=== PATIENT | female | born 1930 | race Caucasian/White ===

== ENCOUNTER 2016-07-02 04:58 | Emergency (ER) | payer MEDICARE, OTHER ==
[~2016-07-02 04:58] MED LIST: BUSPAR5 MG PO; CLARITIN DPS10 MG PO; FOSAMAX70 MG PO; MACROBID100 MG PO; NORVASC DPS10 MG PO; PAMELOR DPS10 MG PO; PRESERVISION A1 EAC1 PO; VITAMIN B-121000 MC1 PO; XALATAN2.5 ML OU; XANAX DPS0.25 MG PO; ZOCOR DPS10 MG PO
--- NOTE | 2016-07-02 19:24 | ER ---
ADMIT: 07/02/2016 RM/LOC: ER [facility] MR#: [id number] [address] [address] [place] [address] [address] Emergency Room Report SEX: F AGE: 85 : 1930 DATE: 07/02/2016 The patient is an 85-year-old female with past medical history of high blood pressure, came to the ER with chief complaint of fall. The patient states she was going to shower when she lost balance and fell on the back and hit the back to the shower and after that, the patient was able to walk. The patient denies any head trauma or loss of consciousness. The patient complains of bilateral paraspinal lumbar pain. PHYSICAL EXAMINATION: GENERAL: In the ER, the patient was in no obvious distress. VITAL SIGNS: Stable. HEENT: There are no obvious signs of trauma in the head. No rice sign. No hemotympanum. No raccoon eyes. Pupils are 3 mm, reactive to light bilaterally. Trachea is midline. There is no cervical spine midline tenderness or step-offs. There is no midline tenderness or step-offs also in the rest of the spine. The patient has mild tenderness in bilateral paraspinal, lower thoracic, and higher lumbar area. LUNGS: Bilateral equal breath sounds. HEART: Normal S1, S2 without any murmurs. ABDOMEN: Soft. EXTREMITIES: Except for some ecchymosis on the right elbow, the range of the motion of all extremities are good and I did not see any obvious swelling or signs of injury. LABORATORY DATA: The EKG was positive for left bundle branch block and was normal sinus rhythm and also negative for Sgarbossa criteria. Cardiac enzymes troponin I is negative. WBC is 11.5 with hemoglobin of 12.4, and platelets of 145,000. Sodium is 137, potassium was 4. CT of the chest and abdomen was questionable for T10-T11 nondisplaced compression fracture. Dr. Delarosa, the neurosurgeon was contacted and advised the patient can be discharged to home, as this is a stable fracture, and follow up as an outpatient for possible MRI and further interventions. Plan was discussed with the patient. Physical therapist evaluation was ordered for assessment of mobility and home safety per the patient. The patient was signed out to the next shift to follow up on physical therapist assessment and disposition accordingly. Charbel Perez MD/ diandra JOB #: [id number] CC: Charbel Perez MD, Attending Physician Jonathan Johnson MD, Family Physician
--- NOTE | 2016-07-08 15:34 | ER ---
ADMIT: 07/02/2016 RM/LOC: ER [facility] MR#: [id number] [address] [address] [place] [address] Emergency Room Report SEX: F AGE: 85 : 1930 DATE: 07/02/2016 ADDENDUM: An 85-year-old white female coming in with a little bit of back pain. I refer you to Dr. Perez's T-sheet and dictation. At this time, she essentially has maybe a mild T11 compression fracture. I spoke with Dr. Johnson. She is able to get up and around. We will discharge her home, Tylenol for pain. Heat or ice and then she is to see Dr. Johnson this week. CONDITION ON DISCHARGE: Good. Jonathan Villanueva MD/ diandra JOB #: [id number] CC: Charbel Perez MD, Attending Physician Jonathan Johnson MD, Family Physician
[2016-07-11] MEDS ORDERED: MIRALAX PACKET17 GM PO (19:45)
[2016-07-11] MEDS ORDERED: FLEET ENEMA133 ML PR (19:46)
[2016-07-11] MEDS ORDERED: DULCOLAX-DPS10 MG PR (19:46)
[2016-07-11] MEDS ORDERED: ZOFRAN4 MG PO (19:46)
[2016-07-11] MEDS ORDERED: TYLENOL DPS325 MG PO (19:46)
[2016-07-11] MEDS ORDERED: MYLICON DPS80 MG PO (19:46)
== END 2016-07-02 11:07 | disposition home or self-care (01) ==
LOC: ER 04:58
DX: S50.01XA Contusion of right elbow, initial encounter (principal); M54.5 Low back pain; I10 Essential (primary) hypertension; E78.00 Pure hypercholesterolemia, unspecified; W22.8XXA Striking against or struck by other objects, initial encounter

== ENCOUNTER 2016-07-05 11:08 | Inpatient (IN) | payer MEDICARE, OTHER ==
[~2016-07-05] VITALS: Ht 160 cm; Wt 52.6 kg
--- NOTE | 2016-07-07 08:28 | HP ---
ADMIT: 07/05/2016 RM/LOC: 618 [facility] MR#: [id number] 2620 [facility] [address] [place] [address] [place] [facility] [place] [address] History and Physical SEX: F AGE: 85 : 1930 DATE OF SERVICE: CHIEF COMPLAINT: Nausea and vomiting. HISTORY OF PRESENT ILLNESS: Ms. Cole is a very pleasant, 85-year-old female. She has a past medical history significant for anxiety, hypertension, hyperlipidemia, and osteoporosis. She apparently fell late Wednesday night early morning, was actually seen in the ER and at that time, was found to have a T11 compression fracture, thought to be acute. She reports since then she has been taking arthritis strength Tylenol pretty frequently every 6 hours and it has been working for her back pain notes that. She then yesterday started developing nausea, reports that every time she would eat, food come back up. Reports she has not had a bowel movement since Wednesday. Notes that otherwise she feels hungry at times, but then she will try to eat and she will just throw food up, so she came to the ER. They did a CT scan that did show an ileus, otherwise she was noted to be mildly hyponatremic. PAST MEDICAL HISTORY: Significant for: 1. Anxiety. 2. Hypertension. 3. Hyperlipidemia. 4. Osteoporosis. 5. Chronic kidney disease. 6. New T11 fracture from 3 days ago. ALLERGIES: NO KNOWN MEDICAL ALLERGIES. MEDICATIONS: List currently I believe is: 1. Xanax 0.25 p.o. t.i.d. p.r.n. 2. Amlodipine 5 mg p.o. daily. 3. Vitamin B12 of 1000 mcg p.o. daily. 4. Xalatan eye drops 1 drop each eye at bedtime. 5. Pamelor 20 mg p.o. at bedtime. 6. Zocor 10 mg p.o. daily. 7. PreserVision eye drops. SOCIAL HISTORY: She does not smoke or use any significant alcohol. She lives with her actually independently although there are planning moving to an assisted living in [place]. FAMILY HISTORY: Relatively noncontributory. REVIEW OF SYSTEMS: Obtained, was otherwise essentially negative. PHYSICAL EXAMINATION: GENERAL: She is alert and oriented. She is no apparent distress. SKIN: Warm and dry. NEUROLOGICAL: She moves her upper and lower extremities. Notes alert and oriented. Pupils are equal, round, reactive. Oropharynx has dry mucous ADMIT: 07/05/2016 RM/LOC: 618 [facility] MR#: [id number] [address] [address] [facility] [place] [address] History and Physical SEX: F AGE: 85 : 1930 membranes. NECK: Supple. HEART: Normal rate with a regular rhythm. LUNGS: Clear to auscultation. ABDOMEN: Normoactive bowel sounds. EXTREMITIES: Have no evidence of edema. ASSESSMENT/PLAN: 1. Severe constipation. At this time, the plan is to admit her. We will go ahead and really try more from below as opposed to orally with her mild ileus on CT scan. 2. New T11 compression fracture. We will continue p.r.n. Tylenol. 3. Hypertension. Continue amlodipine. 4. Hyperlipidemia. Continue Zocor. 5. Insomnia. Continue her Pamelor. 6. Hyponatremia. We will check a TSH and a cortisol level. We will give her some IV fluids and repeat her labs in the morning. I spent 35 minutes. Bess Mederos MD/ diandra JOB #: [id number] CC: Jonathan Johnson, Attending Physician Jonathan Johnson, Family Physician
--- NOTE | 2016-07-09 09:48 | CO ---
ADMIT: 07/06/2016 RM/LOC: 618 [facility] MR#: [id number] [address] [address] [place] [place] [address] [place] [address] Consultation SEX: F AGE: 85 : 1930 DATE OF CONSULTATION: 07/08/2016 ATTENDING PHYSICIAN: Jonathan Johnson CONSULTING PHYSICIAN: Doug Childress MD HISTORY OF PRESENT ILLNESS: This is an 85-year-old female, seen in surgical consultation for Dr. Johnson for severe constipation. Aide reports she fell just over a week ago at home and hit something in her bathroom in the middle of the night. She had sudden pain then and was evaluated in the ER, found to have a T11 compression fracture. She came to the hospital with complaints of not having bowel movements over the last several days preceding that visit on the . She was admitted for further workup. She did have nausea and vomiting at that point. CT scan was performed, which demonstrated ileus. She now reports the nausea and vomiting has resolved. She does not have any abdominal pain and has not had any throughout this process. She does complain of pain in her back. She had a Gastrografin enema yesterday which did not demonstrate volvulus or obstructive finding, but did demonstrate stool in the colon of substantial quantity. She does report today she had a large bowel movement which was liquid and also passed a lot of gas. She has used MiraLax and Metamucil at home prior even to this injury for regular bowel function and is also felt that certain foods provide relief for her. PAST MEDICAL HISTORY: 1. Anxiety. 2. Hypertension. 3. Hyperlipidemia. 4. Osteoporosis. 5. Chronic renal insufficiency. 6. T11 fracture. ALLERGIES: NO KNOWN MEDICAL ALLERGIES. MEDICATIONS: At home: 1. Xanax. 2. Amlodipine. 3. Vitamin B12. 4. Xalatan. 5. Pamelor. 6. Zocor. 7. PreserVision. SOCIAL HISTORY: She does not smoke or drink alcohol. She lives with her and they are planning a move in August to an assisted living area. FAMILY HISTORY: Noncontributory. REVIEW OF SYSTEMS: A 10-point review of systems is performed. The remainder of this is negative with the exceptions of those symptoms mentioned in the ADMIT: 07/06/2016 RM/LOC: 618 [facility] MR#: [id number] [address] [address] [place] [address] Consultation SEX: F AGE: 85 : 1930 history of present illness. PHYSICAL EXAMINATION: GENERAL: She is alert, oriented, and in no acute distress. VITAL SIGNS: She is afebrile, and her vital signs are stable. Cranial nerves are grossly intact. NECK: Supple, without lymphadenopathy. Trachea is midline. LUNGS: Clear to auscultation bilaterally. HEART: Regular rate and rhythm. ABDOMEN: Soft. Nontender. Mild distention. Bowel sounds are present. EXTREMITIES: Calves are soft bilaterally with no clubbing, cyanosis, or edema. NEURO: No focal neurologic deficit. IMPRESSION: 1. Constipation, which seems to be somewhat improving this morning. 2. Recent T11 compression fracture. 3. Underlying comorbidities. PLAN: I have recommended continuing with attempts at oral and rectal stimulation for further bowel function monitoring. She does not have obstructive finding or worrisome finding for volvulus on the workup thus far. We will add magnesium citrate to her MiraLax regimen orally. She is scheduled to receive enemas through the day today in hopes of prompting further bowel function. We will continue to follow pending her progress. We would not perform colonoscopy tentatively, but plan for that at a later date after recovery from the fracture process. Doug Childress MD/ diandra JOB #: [id number] CC: Jonathan Johnson, Attending Physician Jonathan Johnson, Family Physician
[2016-07-11] MEDS ORDERED: MIRALAX PACKET17 GM PO (19:45)
[2016-07-11] MEDS ORDERED: TYLENOL DPS325 MG PO (19:46)
[2016-07-11] MEDS ORDERED: FLEET ENEMA133 ML PR (19:46)
[2016-07-11] MEDS ORDERED: MYLICON DPS80 MG PO (19:46)
[2016-07-11] MEDS ORDERED: ZOFRAN4 MG PO (19:46)
[2016-07-11] MEDS ORDERED: DULCOLAX-DPS10 MG PR (19:46)
--- NOTE | 2016-07-13 11:58 | CO ---
ADMIT: 07/05/2016 RM/LOC: 618 [facility] MR#: [id number] [address] [address] [place] [facility] [place] [address] Consultation SEX: F AGE: 85 : 1930 Corrected: 07/06/2016 1348 ajf DATE OF CONSULTATION: 07/06/2016 ATTENDING PHYSICIAN: Jonathan Johnson CONSULTING PHYSICIAN: Doni Delarosa MD REASON FOR CONSULT: T11 fracture. HISTORY OF PRESENT ILLNESS: This is a very pleasant woman, who presented on the with having had a fall a few days prior. She is having some trouble ambulating with severe pain in her back. She also has not had a bowel movement. CT scan was obtained, which revealed an ileus and a T11 compression fracture. She does not complain of bowel or bladder incontinence. She does have pain with walking and pain near the top of her lumbar region. PAST MEDICAL HISTORY: Anxiety, hyperlipidemia, osteoporosis, hypertension, and chronic kidney disease. ALLERGIES: NONE KNOWN. MEDICATIONS: 1. Xanax. 2. Amlodipine. 3. Vitamin B12. 4. Pamelor. 5. Zocor. 6. Xalatan. 7. PreserVision. SOCIAL HISTORY: She does not smoke or drink. She lives with her . They are working on moving to assisted living because the house is too big. FAMILY HISTORY: No history of neurosurgical disease. REVIEW OF SYSTEMS: Complete review of systems was obtained and annotated in the history of present illness with the pertinent positives. PHYSICAL EXAMINATION: VITAL SIGNS: 97.2 degrees, 87 beats, 18 respirations, 203/69 with prior readings 140 to 190, and 97% on room air. Blood pressure recheck is upcoming. GENERAL: She is otherwise healthy-appearing 85-year-old woman. HEENT: With an atraumatic head. No scleral icterus. Clear oropharynx. LUNGS: Normal respiratory excursion. ABDOMEN: Minimally obese abdomen with tenderness in the midline of the thoracolumbar juncture. NEUROLOGICAL EXAMINATION: MENTAL STATUS: She is awake, alert, oriented x4. ADMIT: 07/05/2016 RM/LOC: 618 [facility] MR#: [id number] [address] [address] [place] [address] Consultation SEX: F AGE: 85 : 1930 She has no dysphonia, dysarthria, or aphasia. Her affect is appropriate. Her thought content is normal. CRANIAL NERVES: Cranial nerves II through XII are individually tested, found to be intact without deficit. MOTOR EXAM: Motor exam reveals 5/5 strength with some early cogwheel rigidity and a resting tremor predominantly in the right hand. GAIT: Gait, very mildly wide-based and somewhat festinating, although, it is very early if it is a parkinsonian gait. Deep tendon reflexes 2/4 in the upper and lower extremities. Cerebellar, no dysdiadochokinesia. SENSORY EXAM: Sensation is intact to light touch. ASSESSMENT AND PLAN: Mrs. Cole is an 85-year-old woman, who had a fall and has severe back pain probably from this acute T11 fracture. I am going to try to obtain an MRI to document whether this actually acute and then subsequently seek for kyphoplasty. Since she is going down for MRI, I will order an MRI of her brain. As far as her Parkinson disease workup, she will need to see Neurology. This tremor has been going on she said since about last October. It appears to be an early parkinsonistic features and she may benefit from Sinemet, but she will need formal outpatient neurological consultation. Doni Delarosa MD/ diandra JOB #: [id number] CC: Jonathan Johnson, Attending Physician Jonathan Johnson, Family Physician Corrected: 07/06/2016 1348 ajf
--- NOTE | 2016-07-16 19:38 | ER ---
ADMIT: 07/05/2016 RM/LOC: 618 [facility] MR#: [id number] 2620 [facility] [address] [place], [place] [address] [place] [address] [place] [address] Emergency Room Report SEX: F AGE: 85 : 1930 DATE: 07/05/2016 ADDENDUM: An 85-year-old female, states she has not had a bowel movement in 5 days. States for the past 2 days, she has not been able to keep any fluids down and she has been nauseated and vomiting. She did experience a T11 thoracolumbar mild compression fracture last Wednesday. She was seen in the ER, was given a shot of morphine and sent home to use Tylenol. She has not been on any narcotics since going home, but has not had a bowel movement since the day of her injury. She states she does not have any numbness, tingling, or weakness, has not had any problems with urination. She just feel like her bowels are not moving. On abdominal exam, I did hear some bowel sounds and her abdomen is bloated and slightly distended but not rigid and is minimally tender. We did get an IV started, gave her a liter of normal saline and checked some labs. Her sodium was low at 128. The patient's creatinine is 1.0, chloride was 93, and CBC was unremarkable. We did get a flat plate of her abdomen which showed what appeared to be some stool, I do not see an obvious obstruction. I did attempt giving the patient suppository followed by a milk of molasses enema and magnesium citrate in addition to IV fluid hydration. When she was not able to produce any stool with that, I did decide to get a CT abdomen and pelvis which reveals an ileus, no obvious mechanical obstruction. Due to her age and inability to tolerate p.o., I do believe patient will need to come in the hospital and I spoke to Dr. Mederos who is on for her primary care physician. The patient will be brought in observation. DIAGNOSES: 1. Nausea and vomiting. 2. Ileus. 3. Constipation. 4. Hyponatremia. 5. Subacute T11 compression fracture. Mike Acevedo MD/ diandra JOB #: [id number] CC: Jonathan Johnson MD, Attending Physician Jonathan Johnson MD, Family Physician
--- NOTE | 2016-07-17 16:36 | DS ---
ADMIT: 07/06/2016 RM/LOC: 618 [facility] MR#: [id number] [address] [address] [place] [facility] [place] [address] Discharge Summary SEX: F AGE: 85 : 1930 ADMISSION DATE: 07/06/2016 DISCHARGE DATE: 07/10/2016 CONSULTATIONS: 1. Dr. Doni Delarosa with Neurosurgery. 2. Dr. Arthur Barber with Interventional Radiology. 3. Dr. Childress with General Surgery. PROCEDURES: T11 kyphoplasty. FINAL DIAGNOSES: 1. Obstipation, resolved. 2. T11 compression fracture status post kyphoplasty. 3. Tremor. 4. Brain atrophy. 5. Anxiety. 6. Hypertension. REASON FOR ADMISSION: Please see H and P. However briefly, admitted for obstipation. HOSPITAL COURSE: Admitted to the service of [facility] under the care of myself, Jonathan Johnson MD. Received appropriate intervention secondary to severe obstipation. Also consultation for her T11 compression fracture. She does receive aggressive bowel regimen. She has very distended bowel. She does receive consultation by General Surgery. She does aid us with her bowel movements as well. She does have a very large bowel movement, has fantastic improvement, has very much improved. She is eating and drinking well. She undergoes a kyphoplasty and her pain is well controlled. She was seen by neurosurgery for concern that her tremor may represent early Parkinson's disease. We attempted neurology consult, however they are not available at this time. Therefore, we will arrange an outpatient consultation with Dr. Larry in [place]. She says is doing very well, eating and drinking well, ambulating well. However, she does have some weakness and does use a walker. Therefore, we will have PT/OT as well as some [facility] home health care. DISPOSITION: Home with Home Health Care. ADMIT: 07/06/2016 RM/LOC: 618 [facility] MR#: [id number] [facility] [address] [address] [place] [address] [place] [address] Discharge Summary SEX: F AGE: 85 : 1930 STATUS ON DISCHARGE: Stable. DISCHARGE MEDICATIONS: See medication reconciliation, reviewed and accurate. DISCHARGE INSTRUCTIONS: Discharge to home with Home Health Care. Aggressive bowel regimen. Follow up with Dr. Johnson in 10 days approximately. She will have home health care as well. Discussed the plan with the patient, expressed understanding, was in agreement, had no further questions. Thirty minutes spent on discharge activities of this patient. Jonathan Johnson MD/ vdg JOB #: [id number] CC: Jonathan Johnson MD, Attending Physician Jonathan Johnson MD, Family Physician
== END 2016-07-10 15:30 | disposition home health service (06) | DRG 982 ==
LOC: ER 11:08 → 6PED 15:45
PROVIDERS: ADMIT Internal Medicine
DX: K59.00 Constipation, unspecified (principal); E87.1 Hypo-osmolality and hyponatremia; S22.089A Unspecified fracture of T11-T12 vertebra, initial encounter for closed fracture; F41.9 Anxiety disorder, unspecified; E78.5 Hyperlipidemia, unspecified; G31.9 Degenerative disease of nervous system, unspecified; M81.0 Age-related osteoporosis without current pathological fracture; N18.9 Chronic kidney disease, unspecified; I12.9 Hypertensive chronic kidney disease with stage 1 through stage 4 chronic kidney disease, or unspecified chronic kidney disease; G47.00 Insomnia, unspecified; R25.1 Tremor, unspecified; Z91.81 History of falling; Z66 Do not resuscitate